=== PATIENT | male | born 1970 | race Caucasian/White ===

== ENCOUNTER → 2017-01-15 | Outpatient (CLI) | payer OTHER ==
--- NOTE | 2017-01-15 11:38 | RAD ---
Left shoulder arthrogram fluoroscopic Indication: Left shoulder pain. History of multiple prior surgeries for rotator cuff tear. Technique: After discussion of the risks and benefits, informed written and verbal consent were obta ined. The patient was prepped and draped in the usual sterile fashion. Time-out was performed. Local anesthetic was applied. I a 22 gauge spinal needle was advanced to the joint, and a mixture of ana te contrast and lidocaine was placed into the joint for a total volume of 12 cc. Findings: Contrast fills the joint as expected. Irregularity of the superior aspect of the cuff sugg est possible tear. 30 seconds of total fluoroscopic time used. Impression: Successful left shoulder arthrogram without acute complication. CT report to follow. Reported By:
--- NOTE | 2017-01-16 10:05 | CT ---
CT arthrogram left shoulder Indication: Left shoulder pain. History of rotator cuff tear with repair Technique: Helical images through the left shoulder after intra-articular contrast per protocol. See separately dictated arthrogram report. Coronal and sagittal reformats provided. Findings: Limited images through the left chest show no acute abnormality. Soft tissues of the left neck and left chest wall appear normal. There are at least 5 surgical anchors at the greater tuberosity with. There is full-thickness tear o f the supraspinatus, with contrast exiting through the defect on sagittal image 78 through 90 into t he subacromial/subdeltoid bursa which is filled with contrast, compatible with full-thickness tear o f the supraspinatus. The defect in the supraspinatus is at the musculotendinous junction see coronal images 109 through 91, with a gap of 1.7 cm. The AP dimension of the tear is 1.3 cm. No marked muscle belly atrophy is seen. The infraspinatus and subscapularis appear grossly intact. B iceps tendon is intact. Glenoid articular cartilage appears normal without full-thickness defect. The glenoid labrum appears relatively intact superiorly, inferiorly, and posteriorly. There is blunting of the anterior glenoi d labrum which appears small see axial images 63 through 59. Impression: 1. Full-thickness tear at the musculotendinous junction of the supraspinatus, with nearly the entire substance of the tendon involved, with retraction. The distal insertion of the tendon the anchor si belinda is relatively intact. 2. Blunting of the anterior and anterior inferior glenoid labrum. 3. Mild AC joint degenerative change. No muscle belly atrophy or fracture. The biceps tendon, subsca pularis and infraspinatus are relatively intact. Reported By:
== END | disposition home or self-care (01) ==
LOC: RAD 09:32
PROVIDERS: ATTEND Orthopaedic Surgery
PROC: B01BYZZ Fluoroscopy of Spinal Cord using Other Contrast (ICD-10-PCS; principal; 2017-01-15)
DX: M25.512 Pain in left shoulder (principal); S46.812A Strain of other muscles, fascia and tendons at shoulder and upper arm level, left arm, initial encounter; X58.XXXA Exposure to other specified factors, initial encounter
CPT/HCPCS: 23350; 73040; 73201